=== PATIENT | female | born 1975 | race Caucasian/White ===

== ENCOUNTER 2018-04-16 08:27 | Emergency (ER) | payer OTHER ==
[~2018-04-16] VITALS: Ht 190.5 cm; Wt 102.1 kg
[~2018-04-16 08:27] MED LIST: LEVSOD175 PO; THYROID
[2018-04-16] MEDS ORDERED: Synthroid200 MCG PO (09:01)
[2018-04-16] MEDS ORDERED: Vitamin D2000 UNIT PO (09:02)
[2018-04-16] MEDS ORDERED: Synthroid25 MCG PO (09:02)
[2018-04-16] MEDS ORDERED: LIOT50 PO (09:02)
[2018-04-16 09:56] LABS: BASOPHILS ABSOLUTE AUTO 0.03 K/mm3 (0.00-0.23); BASOPHILS PERCENT AUTO 0 % (0-2); EOSINOPHILS ABSOLUTE AUTO 0.01 K/mm3 (0.00-0.68); EOSINOPHILS PERCENT AUTO 0 % (0-6); Hematocrit 33.1 % (33.0-51.0); IMMATURE GRAN ABSOLUTE AUTO 0.02 K/mm3 (0.00-0.10); IMMATURE GRAN PERCENT AUTO 0 % (0-1); LYMPHOCYTES ABSOLUTE AUTO 0.78 K/mm3 (0.84-5.20); LYMPHOCYTES PERCENT AUTO 11 % (21-46); MONOCYTES ABSOLUTE AUTO 0.23 K/mm3 (0.16-1.47); MONOCYTES PERCENT AUTO 3 % (4-13); Mean Corpuscular HGB 29.1 pg (26.0-34.0); Mean Corpuscular HGB Conc 30.2 g/dL (31.5-36.5); Mean Corpuscular Volume 96 fL (80-100); NEUTROPHILS ABSOLUTE AUTO 6.12 K/mm3 (1.96-9.15); NEUTROPHILS PERCENT AUTO 85 % (41-73); Platelet Count 295 K/mm3 (150-400); RDW Coefficient Variation 14.6 % (11.7-14.2); RDW Standard Deviation 51.8 fL (35.1-46.3); Red Blood Cell Count 3.44 M/mm3 (3.80-5.20); White Blood Cell Count 7.19 K/mm3 (4.00-11.30)
[2018-04-16 10:09] LABS: Alanine Aminotransfer (ALT/SGP 36 U/L (12-78); Albumin, Blood 3.6 g/dL (3.4-5.0); Albumin/Globulin Ratio 1.1 (0.8-1.8); Alk Phos 65 U/L (50-136); Anion Gap 8 mmol/L (6-16); Aspartate Aminotrans (AST/SGOT 49 U/L (12-37); Bilirubin, Total 0.3 mg/dL (0.1-1.0); Blood Urea Nitrogen 10 mg/dL (8-24); CO2, Blood 24 mmol/L (21-32); Calcium, Blood 8.1 mg/dL (8.5-10.1); Chloride, Blood 107 mmol/L (98-108); Creatinine, Blood 0.63 mg/dL (0.40-1.00); Globulin, Blood 3.3 g/dL (2.2-4.0); Glomerular Filtration Rate >60 (60-); Glucose, Blood 116 mg/dL (70-99); Potassium, Blood 3.3 mmol/L (3.5-5.5); Sodium, Blood 139 mmol/L (136-145); Total Protein, Blood 6.9 g/dL (6.4-8.2)
[2018-04-16 10:44] LABS: Source, Urine Clean Catch
[2018-04-16 10:49] LABS: Appearance, Urine Clear (Clear); Bilirubin, Urine Neg (Neg); Blood, Urine Neg (Neg); Color, Urine Yellow (P-Yellow); Glucose Qualitative, Urine Neg (Neg); Ketones, Urine Neg (Neg); Leukocyte Esterase, Urine 1+ (Neg); Nitrite, Urine Neg (Neg); Protein, Urine 1+ (Neg); Urobilinogen, Urine NORM (Normal)
[2018-04-16 11:20] LABS: Bacteria Few /hpf; Red Blood Cells, Urine Not Seen /hpf (0-2); Squamous Epithelial Cells Mod /hpf (Few); White Blood Cells, Urine 0-2 /hpf (0-5)
[2018-04-16 11:21] LABS: Mucus Light (0-Heavy)
[2018-04-16] MEDS ORDERED: AZIT250 PO (11:27)
== END 2018-04-16 12:49 | disposition home or self-care (01) ==
LOC: ER 08:27
PROVIDERS: Emergency Medicine
DX: J18.9 Pneumonia, unspecified organism (principal); K59.00 Constipation, unspecified; Z79.899 Other long term (current) drug therapy
CPT/HCPCS: 36415; 71045; 74176; 80053; 81001; 83690; 84703; 85025; 87086; 93005; 93010; 96361; 96365; 96375; 99284-25; J0696; J1170; J2405; J7030

== ENCOUNTER 2020-08-31 13:06 | Day surgery (SDC) | payer OTHER ==
[~2020-08-31 13:06] MED LIST changes: +AZIT250 PO; +LIOT50 PO; +PROM25 PO; +Synthroid200 MCG PO; +Synthroid25 MCG PO; +Vitamin D2000 UNIT PO
[2020-08-31] MEDS ORDERED: Synthroid300 MCG PO (16:06)
[2020-08-31] MEDS ORDERED: Amoxicillin875 MG PO (16:07)
[2020-08-31] MEDS ORDERED: ZOFRAN4 MG PO (16:07)
== END 2020-08-31 16:32 | disposition home or self-care (01) ==
LOC: ATC 13:06
DX: K04.7 Periapical abscess without sinus (principal); R63.0 Anorexia; E86.0 Dehydration; Z79.899 Other long term (current) drug therapy
CPT/HCPCS: 96361; 96365; 96375; 99282; J0690; J1885; J2405; J7121

== ENCOUNTER 2023-03-03 07:11 | Day surgery (SDC) | payer OTHER ==
[~2023-03-03 07:11] MED LIST changes: +Amoxicillin875 MG PO; +Synthroid300 MCG PO; +ZOFRAN4 MG PO
== END 2023-03-03 22:45 | disposition home or self-care (01) ==
LOC: MOI US 07:11
DX: N63.20 Unspecified lump in the left breast, unspecified quadrant (principal)
CPT/HCPCS: 19083; 77065; 88305; 88342; A4648